=== PATIENT | male | born 1995 | race Caucasian/White ===

== ENCOUNTER → 2017-01-11 | Outpatient (CLI) | payer OTHER ==
[~2017-01-11] MED LIST: ANTIBIOTIC O500 U/GM T; NAPROSYN500 MG PO; TAB-A-VITE W/IR1 TAB PO; TYLENOL W/CODEI1 TA2 PO; ZOFRAN ODT4 MG SL
== END | disposition home or self-care (01) ==
LOC: RAD 12:55
DX: M54.5 Low back pain (principal); M79.605 Pain in left leg